=== PATIENT | female | born 1940 | race Caucasian/White ===

== ENCOUNTER 2018-01-03 11:10 | Emergency (ER) | payer OTHER ==
[~2018-01-03] VITALS: Ht 157.5 cm; Wt 68.0 kg
[~2018-01-03 11:10] MED LIST: ASPIRIN EC81 M1; FIBER SUPPLEME283 GM; FOLIC ACID; NEURONTIN 300300 M1; SYNTHROID75 MCG; ZOCOR80 MG
[2018-01-03 11:44] LABS: ABSOLUTE BASOPHILS 0.1 thou/uL (0.0-0.2); ABSOLUTE EOSINOPHILS 0.2 thou/uL (0.0-0.7); ABSOLUTE LYMPHOCYTES 2.9 thou/uL (0.8-5.3); ABSOLUTE MONOCYTES 0.9 thou/uL (0.0-1.2); ABSOLUTE NEUTROPHILS 5.2 thou/uL (1.6-8.1); BASOPHILS 1.4 %; EOSINOPHILS 2.2 %; HEMATOCRIT 43.1 % (37.0-47.0); LYMPHOCYTES 31.1 %; MCH 28.8 pg (26.0-34.0); MCHC 32.6 g/dL (28.0-37.0); MCV 88.2 fL (80.0-100.0); MONOCYTES 9.7 %; MPV 8.7 fl. (7.2-11.1); NUCLEATED RBCS 0 /100WBC; PLATELET COUNT* 281 thou/uL (150-400); POLYS 55.6 %; RBC 4.88 mil/uL (4.20-5.00); RDW-CV 14.1 % (10.5-14.5); WBC 9.3 thou/uL (4.0-11.0)
[2018-01-03 11:55] LABS: URINE BILIRUBIN NEGATIVE (Negative); URINE BLOOD NEGATIVE (Negative); URINE CLARITY CLEAR; URINE COLOR YELLOW; URINE GLUCOSE-RANDOM NEGATIVE (Negative); URINE KETONES NEGATIVE (Negative); URINE LEUKOCYTES-REFLEX 2+ (Negative); URINE NITRITE-REFLEX NEGATIVE (Negative); URINE PROTEIN NEGATIVE (Negative); URINE SPECIFIC GRAVITY 1.015 (1.005-1.030); URINE UROBILINOGEN 0.2 E.U./dl (0.2-1.0)
[2018-01-03 12:01] LABS: BACTERIA-REFLEX 1-9 Few /HPF (None Seen); CASTS None Seen /LPF (None Seen); CRYSTALS None Seen /LPF (None Seen); MUCUS None Seen strn/LPF (None Seen); SQUAMOUS 4-10 Moderate /LPF (0-3); URINE RBC 0-2 Rare /HPF (0-2); URINE WBC-REFLEX 6-15 Few /HPF (0-5)
[2018-01-03 12:30] LABS: ANION GAP 12 mmol/L (7-16); BUN 10 mg/dL (7-18); CALCIUM 9.4 mg/dL (8.5-10.1); CHLORIDE 104 mmol/L (98-107); CO2 25 mmol/L (21-32); CREATININE 0.9 mg/dL (0.6-1.3); GLUCOSE 109 mg/dL (70-99); POTASSIUM 3.8 mmol/L (3.5-5.1); SODIUM 141 mmol/L (136-145)
[2018-01-03 12:37] LABS: ALKALINE PHOSPHATASE 75 U/L (46-116); LIPASE 193 U/L (73-393); SGOT 25 U/L (15-37); SGPT 23 U/L (30-65); TOTAL BILIRUBIN 0.3 mg/dL (<0.1-1.0); TOTAL PROTEIN 8.6 g/dL (6.4-8.2); TROPONIN-I LEVEL <0.06 ng/mL (<0.06)
[2018-01-03] MEDS ORDERED: OMEPRAZOLE 20 M20 M1 PO (14:30)
[2018-01-03 14:45] VITALS: BP 140/85
--- NOTE | 2018-01-03 16:30 | EKG ---
[place] [address] ELECTROCARDIOGRAM REPORT Name: MAGOHIGINIO Room: [facility]#: [id number] Admission: 01/03/18 Attend Phys: Discharge: 01/03/18 Date of : 44 Report #: [id number] THIS REPORT FOR: //name// [facility] ED Test Date: 2018-01-03 Test Time: 11:21:18 Pat Name: HIGINIO MERCEDES Department: Room: Gender: F [place] Layer: Elaine PICHARDO : 1940 Requested By: Yarelis Lopes Order Number: [id number] MD: Lorenzo Lambert Measurements Intervals [place] Rate: 78 P: 58 [place]: 151 QRS: -9 QRSD: 98 T: 56 QT: 386 QTc: 440 Interpretive Statements Sinus rhythm Minimal ST depression, lateral leads Compared to ECG 10/04/2005 10:31:23 ST (T wave) deviation now present Atrial premature complex(es) no longer present Electronically Signed On 01-03-2018 16:30:37 CDT by Lorenzo Lambert [email or web address] <ELECTRONICALLY SIGNED> By: Lorenzo Lambert MD, [facility] 01/03/18 1630 [id number] [id number] Lorenzo Lambert MD, [facility] /EPI
== END 2018-01-03 14:54 | disposition home or self-care (01) ==
LOC: M.ERS 11:10
PROVIDERS: Nurse Practitioner Family
DX: R10.13 Epigastric pain (principal); R19.7 Diarrhea, unspecified; I25.10 Atherosclerotic heart disease of native coronary artery without angina pectoris; E03.9 Hypothyroidism, unspecified; F17.210 Nicotine dependence, cigarettes, uncomplicated; Z88.0 Allergy status to penicillin; Z88.6 Allergy status to analgesic agent; Z88.8 Allergy status to other drugs, medicaments and biological substances; Z95.5 Presence of coronary angioplasty implant and graft; Z98.890 Other specified postprocedural states

== ENCOUNTER 2018-06-04 08:53 | Emergency (ER) | payer OTHER ==
[~2018-06-04] VITALS: Ht 160 cm; Wt 72.1 kg
[~2018-06-04 08:53] MED LIST changes: +OMEPRAZOLE 20 M20 M1 PO
[2018-06-04] MEDS ORDERED: LUTEIN10 MG PO (09:09)
[2018-06-04] MEDS ORDERED: FISH OIL 1,001000 M2 PO (09:09)
[2018-06-04 09:44] LABS: ABSOLUTE BASOPHILS 0.1 thou/uL (0.0-0.2); ABSOLUTE EOSINOPHILS 0.2 thou/uL (0.0-0.7); ABSOLUTE LYMPHOCYTES 2.7 thou/uL (0.8-5.3); ABSOLUTE MONOCYTES 0.8 thou/uL (0.0-1.2); ABSOLUTE NEUTROPHILS 5.6 thou/uL (1.6-8.1); BASOPHILS 1.3 %; EOSINOPHILS 2.4 %; HEMATOCRIT 42.6 % (37.0-47.0); LYMPHOCYTES 28.7 %; MCH 29.3 pg (26.0-34.0); MCHC 32.8 g/dL (28.0-37.0); MCV 89.3 fL (80.0-100.0); MONOCYTES 8.3 %; MPV 8.8 fl. (7.2-11.1); NUCLEATED RBCS 0 /100WBC; PLATELET COUNT* 261 thou/uL (150-400); POLYS 59.3 %; RBC 4.77 mil/uL (4.20-5.00); WBC 9.5 thou/uL (4.0-11.0)
[2018-06-04 09:56] LABS: ANION GAP 8 mmol/L (7-16); BUN 13 mg/dL (7-18); CALCIUM 9.3 mg/dL (8.5-10.1); CHLORIDE 104 mmol/L (98-107); CO2 28 mmol/L (21-32); CREATININE 1.1 mg/dL (0.6-1.3); GLUCOSE 116 mg/dL (70-99); SODIUM 140 mmol/L (136-145)
[2018-06-04 09:59] LABS: PROTIME 10.2 Seconds (9.20-11.50)
[2018-06-04 10:14] LABS: ALBUMIN 3.6 g/dL (3.4-5.0); ALKALINE PHOSPHATASE 71 U/L (46-116); CK-MB MASS 1.5 ng/mL (<0.5-3.6); LIPASE 199 U/L (73-393); MAGNESIUM 2.1 mg/dL (1.8-2.4); NT-PRO BRAIN NAT PEPTIDE 57 pg/mL (<300); SGOT 23 U/L (15-37); SGPT 23 U/L (30-65); TOTAL BILIRUBIN 0.2 mg/dL (<0.1-1.0); TOTAL PROTEIN 7.9 g/dL (6.4-8.2); TROPONIN-I LEVEL <0.06 ng/mL (<0.06)
[2018-06-04 10:38] VITALS: BP 154/65
--- NOTE | 2018-06-05 15:49 | EKG ---
[place] [address] ELECTROCARDIOGRAM REPORT Name: HIGINIO MERCEDES Room: [facility]#: [id number] Admission: 06/04/18 Attend Phys: Discharge: 06/04/18 Date of : 44 Report #: [id number] THIS REPORT FOR: //name// [facility] ED Test Date: 2018-06-04 Test Time: 08:57:07 Pat Name: HIGINIO MERCEDES Department: Room: Gender: F [employer] Processor: MALAIKA : 1940 Requested By: Saeid Moody Order Number: [id number] MD: Lorenzo Lambert Measurements Intervals [place] Rate: 74 P: 68 CT: 164 QRS: -6 QRSD: 93 T: 40 QT: 365 QTc: 405 Interpretive Statements Sinus rhythm Compared to ECG 01/03/2018 11:21:18 ST (T wave) deviation no longer present Electronically Signed On 06-05-2018 15:49:43 [employer]FA[employer] by Lorenzo Lambert [email or web address] <ELECTRONICALLY SIGNED> By: Lorenzo Lambert MD, [facility] 06/05/18 1549 [id number] 6 Lorenzo Lambert MD, [facility] /EPI
== END 2018-06-04 10:39 | disposition home or self-care (01) ==
LOC: M.ERS 08:53
PROVIDERS: Family Medicine
DX: R07.89 Other chest pain (principal); I25.10 Atherosclerotic heart disease of native coronary artery without angina pectoris; E03.9 Hypothyroidism, unspecified; F17.210 Nicotine dependence, cigarettes, uncomplicated; Z88.0 Allergy status to penicillin; Z88.8 Allergy status to other drugs, medicaments and biological substances; Z95.5 Presence of coronary angioplasty implant and graft; Z98.890 Other specified postprocedural states